=== PATIENT | female | born 1995 ===

== ENCOUNTER 2018-03-29 12:36 | Emergency (ER) | payer OTHER ==
[2018-03-29 12:56] VITALS: RESP 18; O2SAT 100
[2018-03-29 13:08] LABS: HCG,QUALITATIVE URINE NEGATIVE (NEGATIVE)
[2018-03-29 13:14] LABS: SQUAMOUS EPITHIAL 5 /hpf (0-5); URINE BACTERIA RARE (<OCC); URINE BILIRUBIN NEGATIVE (NEGATIVE); URINE BLOOD 2+ (NEGATIVE); URINE CLARITY Hazy (Clear); URINE COLOR Yellow (YELLOW); URINE GLUCOSE (UA) NORMAL (Normal); URINE LEUKOCYTE ESTERASE NEG Leu/uL (Negative); URINE PROTEIN 1+ mg/dL (NEGATIVE); URINE UROBILINOGEN NORMAL mg/dL (0.2-1.0)
--- NOTE | 2018-03-29 13:56 | C.PDOC ---
History Of Present Illness 23 yo female come in for evaluation of lower abdominal cramping pain developed since yesterday associated with vaginal bleeding. Pt admits, LNMP 03/07/18, denies previous hx of DUB. As per pt, " cramping resembles pre-menstrual pain". Otherwise, pt denies fever, chills, sore throat, abd. pain, N/V/D, back pain, UTI sx, vaginal irritation or discharge. Ambulate to Ed for evaluation, not in any apparent distress. Time Seen by Provider: 03/29/18 12:57 Chief Complaint (Nursing): Female Genitourinary History Per: Patient Past Medical History Reviewed: Historical Data, Nursing Documentation, Vital Signs Vital Signs: Last Vital Signs Temp 98.7 F 03/29/18 12:53 Pulse 92 H 03/29/18 12:53 Resp 18 03/29/18 12:53 BP 111/71 03/29/18 12:53 Pulse Ox 100 03/29/18 12:53 - Medical History PMH: Kidney Stones Surgical History: No Surg Hx Family History: States: No Known Family Hx - Social History Hx Tobacco Use: No Hx Alcohol Use: Yes Hx Substance Use: No - Immunization History Hx Tetanus Toxoid Vaccination: No Hx Influenza Vaccination: No Hx Pneumococcal Vaccination: No Review Of Systems Except As Marked, All Systems Reviewed And Found Negative. Constitutional: Negative for: Fever, Chills ENT: Negative for: Ear Discharge, Nose Discharge, Throat Pain, Throat Swelling Cardiovascular: Negative for: Chest Pain Respiratory: Negative for: Cough, Shortness of Breath, Wheezing Gastrointestinal: Negative for: Nausea, Vomiting, Diarrhea Genitourinary: Positive for: Vaginal Bleeding. Negative for: Dysuria, Frequency, Hematuria, Vaginal Discharge Musculoskeletal: Negative for: Neck Pain, Back Pain Skin: Negative for: Rash Neurological: Negative for: Weakness, Altered Mental Status, Headache, Dizziness Physical Exam - Physical Exam Appears: Well, Non-toxic, No Acute Distress Skin: Normal Color, Warm, Dry, No Rash Head: Normacephalic Eye(s): bilateral: PERRL Nose: No Flaring, No Discharge Oral Mucosa: Moist, No Drooling Tongue: Normal Appearing Lips: Normal Appearing Throat: No Erythema, No Drooling Neck: Trachea Midline, Supple Cardiovascular: Rhythm Regular Respiratory: No Decreased Breath Sounds, No Accessory Muscle Use, No Stridor, No Wheezing Gastrointestinal/Abdominal: Soft, Tenderness (mild suprapubic), No Distention, No Guarding, No Rebound Back: No CVA Tenderness Extremity: Normal ROM, No Deformity, No Swelling Neurological/Psych: Oriented x3, Normal Speech ED Course And Treatment - Laboratory Results Urine POC: Negative O2 Sat by Pulse Oximetry: 100 Pulse Ox Interpretation: Normal Progress Note: On re-eval, pt appears is afebrile, hemodynamicaly stable. NOn- toxic. PuslEOx 100% RA. neck: Supple, (-) JVD. Lungs: CTA B/L, BS equal B/L. CVS: (+)S1S2, reg. Abd: benign, (-) guaridng, (-) rebound. back: (-) CVA tenderness. neuorlogicaly intact. UA review, no evidence of UTI. Pt has clinical findings c/w lower abdomina cramping pain, vaginal bleeding r/o DUB. Pt advised. ref. to f/u with PMD, [facility] In2 -3 days for re-eavl. return if any worsening or new changes. Disposition Counseled Patient/Family Regarding: Studies Performed, Diagnosis, Need For Followup, Rx Given - [facility] Disposition Time: 13:39 Condition: STABLE Additional Instructions: Follow up with [facility] in 2-3 days for re-evaluation. return to ED if any worsening or new changes Instructions: Heavy Periods Forms: [facility] (Slovak), Work Excuse - Clinical Impression Clinical Impression: DUB (dysfunctional uterine bleeding)
[2018-03-29 14:11] VITALS: BP 100/65; PULSE 79; TEMP 97.9
== END 2018-03-29 14:14 | disposition home or self-care (01) ==
LOC: C.ER 12:36
DX: N93.8 Other specified abnormal uterine and vaginal bleeding (principal)